=== PATIENT | male | born 1990 | race Caucasian/White ===

== ENCOUNTER 2018-08-31 04:35 | Emergency (ER) | payer BC ==
[~2018-08-31] VITALS: Ht 180.3 cm; Wt 77.1 kg
[2018-08-31 05:00] VITALS: BP 125/88
[2018-08-31] MEDS ORDERED: IBUPROFEN600 MG ORAL (05:08)
[2018-08-31] MEDS ORDERED: ROBAXIN-750750 MG PO (05:08)
[2018-08-31] MEDS ORDERED: Ketorolac 30mg Inj IM ONE (05:15)
[2018-08-31 05:20] VITALS: BP 128/86
--- NOTE | 2018-08-31 05:55 | Emergency Room Report ---
History of Present Illness General Chief Complaint: Chest Pain Source: Patient Present Illness HPI 27-year-old male presents ED complaining of chest pain. Started approximately one week ago, getting worse. Right-sided, sharp, nonradiating. Worse with bending or twisting. Denies shortness of breath. Denies alcohol or drug use. States that he started lifting weights very heavily after several months. Denies smoking. States he feels very anxious at this time because of the pain. No other aggravating relieving factors. Denies any other associated symptoms Allergies: Coded Allergies: No Known Allergies (Unverified , 08/31/18) Patient History Past Medical History: psych hx Past Surgical History: none Pertinent Family History: none Social History: Denies: smoking, alcohol use, drug use Immunizations: UTD Reviewed Nursing Documentation: PMH: Agreed; PSxH: Agreed Nursing Documentation-PMH History Of Psychiatric Problem: Yes - anxiety Review of Systems All Other Systems: negative except mentioned in HPI Physical Exam Vital Signs Date Time Temp Pulse Resp B/P (MAP) Pulse Ox O2 Delivery O2 Flow Rate FiO2 08/31/18 04:48 98.1 76 16 134/86 97 Room Air 98.1 Sp02 EP Interpretation: reviewed, normal General Appearance: no apparent distress, alert, GCS 15, non-toxic Head: normocephalic Eyes: bilateral eye normal inspection, bilateral eye PERRL ENT: normal ENT inspection Neck: normal inspection Respiratory: lungs clear, normal breath sounds, speaking full sentences, other - R sided reproducible chest walll pain Cardiovascular #1: regular rate, rhythm, no edema Gastrointestinal: normal inspection Rectal: deferred Genitourinary: no CVA tenderness Musculoskeletal: normal inspection Neurologic: alert, oriented x3, responsive, motor strength/tone normal, sensory intact, speech normal Psychiatric: normal inspection Skin: normal inspection Lymphatic: normal inspection Medical Decision Making Diagnostic Impression: Primary Impression: Chest wall pain ER Course Hospital Course 27-year-old female presents ED complaining of reproducible chest wall pain Differential diagnoses include: Rib fracture, IL/unstable angina, contusion, muscle strain Clinical course Patient placed on stretcher. After initial history, physical exam reveals male in no acute distress. Appears somewhat anxious. There is reproducible right sided chest wall pain. Lungs clear. Normal cardiac exam. Remainder physical exam unremarkable EKGnormal sinus rhythm no acute ischemic changes interpreted by me clinical findings consistent with muscle strain/costochondritis. Discussed findings with patient. Patient is young with no risk factors, stable vitals, no EKG changes. Patient safe for discharge with close outpatient follow-up I. I feel this is a highly complex case requiring extensive working including EKG/Rhythm strip, Xray/CT/US, Blood/urine lab work, repeat exams while in ED, and administration of strong opiates/narcotics for pain control, admission to hospital or close patient follow up. Diagnosis - chest wall pain Stable and discharged to home with prescription for Motrin, Robaxin. Instructed to followup with PMD. Return to ED if symptoms recur or worsen my chest wall pain shortness EKG Diagnostic Results Rate: bradycardiac Rhythm: NSR ST Segments: no acute changes ASA given to the pt in ED: No Rhythm Strip Diag. Results EP Interpretation: yes Rhythm: NSR, no PVC's, no ectopy Last Vital Signs Date Time Temp Pulse Resp B/P (MAP) Pulse Ox O2 Delivery O2 Flow Rate FiO2 08/31/18 05:20 98.0 08/31/18 05:20 69 16 128/86 100 Room Air Status: improved Disposition: HOME, SELF-CARE Condition: Stable Scripts Methocarbamol* (ROBAXIN-750*) 750 Mg Tablet 750 MG PO TID, #21 TAB 0 Refills Prov: Cisco Hallman MD 08/31/18 Ibuprofen* (MOTRIN*) 600 Mg Tablet 600 MG ORAL Q8H PRN for For Pain, #30 TAB 0 Refills Prov: Cisco Hallman MD 08/31/18 Referrals: NOT CHOSEN IPA/,REFERRING (PCP) Patient Instructions: Chest Wall Pain, [id number] Cisco Hallman MD Aug 31, 2018 05:55
--- NOTE | 2018-08-31 15:23 | Cardiology Report ---
APPROVED REPORT EKG Measurement Heart [id number] Sinus bradycardia Otherwise normal ECG
== END 2018-08-31 05:20 | disposition home or self-care (01) ==
LOC: EMR 05:05
DX: R07.89 Other chest pain (principal); F41.9 Anxiety disorder, unspecified
CPT/HCPCS: 93005; 96372; 99283; J1885